=== PATIENT | female | born 1960 | race Caucasian/White ===

== ENCOUNTER → 2016-10-22 | Day surgery (SDC) | payer OTHER ==
[2016-10-22 07:46] LABS: HCT 42.4 % (37.0-47.0); HGB 13.8 g/dl (12.5-16.0); MCH 28.2 pg (25.0-31.0); MCHC 32.5 g/dL (32.0-36.0); MCV 86.5 fL (78.0-100.0); MPV 10.8 fL (6.0-9.5); RBC 4.9 M/uL (4.20-5.40); RDW 14.9 % (11.5-14.0); WBC 8.9 K/uL (4.0-10.5)
[2016-10-22 08:08] LABS: ALBUMIN 3.9 g/dL (3.5-5.0); BILIRUBIN - TOTAL 0.3 mg/dL (0.1-1.0); CREATININE 0.8 mg/dL (0.5-1.0); GLOBULIN (CALCULATION) 2.7 g/dL (2.2-4.2); POTASSIUM 4.6 mmol/L (3.5-5.1); TOTAL PROTEIN 6.6 g/dL (6.4-8.3)
== END | disposition home or self-care (01) ==
LOC: FAS 07:03
PROVIDERS: Orthopaedic Surgery
DX: S83.231A Complex tear of medial meniscus, current injury, right knee, initial encounter (principal); M25.861 Other specified joint disorders, right knee; M79.4 Hypertrophy of (infrapatellar) fat pad; M17.11 Unilateral primary osteoarthritis, right knee; K21.9 Gastro-esophageal reflux disease without esophagitis; F17.200 Nicotine dependence, unspecified, uncomplicated; M11.261 Other chondrocalcinosis, right knee; Z87.442 Personal history of urinary calculi; Z91.040 Latex allergy status; Z79.899 Other long term (current) drug therapy; Z79.891 Long term (current) use of opiate analgesic; Z98.84 Bariatric surgery status
CPT/HCPCS: 36415; 80053; 93005; J1100; J1885; J2270; J2704; J2765; J7325